=== PATIENT | male | born 1985 | race Caucasian/White ===

== ENCOUNTER 2016-09-11 14:40 | Emergency (ER) | payer MEDICAID ==
[~2016-09-11] VITALS: Ht 170.2 cm; Wt 68.0 kg
[2016-09-11 14:41] VITALS: BP 125/79; PULSE 68; RESP 20; TEMP 98.4; O2SAT 98
[2016-09-11 17:28] VITALS: O2SAT 100
[2016-09-11] MEDS ORDERED: PANTOPRAZOLE SODIUM 40 MG VIAL IV PUSH ONE (17:30)
[2016-09-11] MEDS ORDERED: KETOROLAC TROMETHAMINE 30 MG/ML (IVP) VIAL IV PUSH ONE (17:30)
[2016-09-11] MEDS ORDERED: SODIUM CHLORIDE 0.9% FLUSH 5 ML FLUSH IVF PRN (17:30)
--- NOTE | 2016-09-11 17:30 | PD ---
HPI Chief Complaint: Abdominal Pain Time Seen by Provider: 17:06 Travel History International Travel<30 days: No Contact w/Intl Traveler<30days: No Traveled to known affect area: No History of Present Illness HPI 31yo M with no significant PMH presents to the ED with c/o epigastric abdominal pain for 3 days. Pain is constant, nonradiating. Denies any n/v, fever, dysuria, hematuria, testicular pain, penile discharge. Took peptol bismol and cimetidine with no relief. Denies any surgical history. PFSH Past Medical History Medical History: Denies Significant Hx Diminished Hearing: No Tetanus Vaccination: Unknown Influenza Vaccination: No Past Surgical History Surgical History: No Previous Surgery Social History Alcohol Use: No Tobacco Use: No Substance Use: No Allergies-Medications (Allergen,Severity, Reaction): Coded Allergies: No Known Allergies (Unverified , 09/11/16) Reported Meds & Prescriptions Reported Meds & Active Scripts Active No Active Prescriptions or Reported Medications Review of Systems Except as stated in HPI: all other systems reviewed are Neg Physical Exam Narrative GENERAL: 31yo M not in distress. SKIN: Warm and dry. HEAD: Atraumatic. Normocephalic. EYES: Pupils equal and round. No scleral icterus. No injection or drainage. ENT: No nasal bleeding or discharge. Mucous membranes pink and moist. NECK: Trachea midline. No JVD. CARDIOVASCULAR: Regular rate and rhythm. No murmur appreciated. RESPIRATORY: No accessory muscle use. Clear to auscultation. Breath sounds equal bilaterally. GASTROINTESTINAL: Abdomen soft, +LLQ tenderness. No rebound tenderness or guarding. : No ttp bilateral testicles. No penile discharge. MUSCULOSKELETAL: No obvious deformities. No clubbing. No cyanosis. No edema. NEUROLOGICAL: Awake and alert. No obvious cranial nerve deficits. Motor grossly within normal limits. Normal speech. PSYCHIATRIC: Appropriate mood and affect; insight and judgment normal. Data Data Last Documented VS Vital Signs Date Time Temp Pulse Resp B/P Pulse Ox O2 Delivery O2 Flow Rate FiO2 09/11/16 17:28 100 Room Air 09/11/16 14:41 98.4 68 20 125/79 Orders Complete Blood Count With Diff (09/11/16 17:23) Comprehensive Metabolic Panel (09/11/16 17:23) Lipase (09/11/16 17:23) Urinalysis - C+S If Indicated (09/11/16 17:23) Iv Access Insert/Monitor (09/11/16 17:23) Ecg Monitoring (09/11/16 17:23) Oximetry (09/11/16 17:23) Sodium Chloride 0.9% Flush (Ns Flush) (09/11/16 17:30) Pantoprazole Inj (Protonix Inj) (09/11/16 17:30) Ketorolac Inj (Toradol Inj) (09/11/16 17:30) Urine Culture (09/11/16 17:36) Labs Laboratory Tests Test 09/11/16 17:36 White Blood Count 9.6 TH/MM3 Red Blood Count 5.65 MIL/MM3 Hemoglobin 16.2 GM/DL Hematocrit 48.1 % Mean Corpuscular Volume 85.2 FL Mean Corpuscular Hemoglobin 28.7 PG Mean Corpuscular Hemoglobin 33.7 % Concent Red Cell Distribution Width 12.5 % Platelet Count 233 TH/MM3 Mean Platelet Volume 8.0 FL Neutrophils (%) (Auto) 64.9 % Lymphocytes (%) (Auto) 25.4 % Monocytes (%) (Auto) 5.7 % Eosinophils (%) (Auto) 3.8 % Basophils (%) (Auto) 0.2 % Neutrophils # (Auto) 6.2 TH/MM3 Lymphocytes # (Auto) 2.4 TH/MM3 Monocytes # (Auto) 0.5 TH/MM3 Eosinophils # (Auto) 0.4 TH/MM3 Basophils # (Auto) 0.0 TH/MM3 CBC Comment DIFF FINAL Differential Comment Urine Color YELLOW Urine Turbidity CLOUDY Urine pH 7.5 Urine Specific [place] 1.018 Urine Protein NEG mg/dL Urine Glucose (UA) NEG mg/dL Urine Ketones 10 mg/dL Urine Occult Blood NEG Urine Nitrite NEG Urine Bilirubin NEG Urine Urobilinogen LESS THAN 2.0 MG/DL Urine Leukocyte Esterase TRACE Urine RBC 1 /hpf Urine WBC 10 /hpf Urine Amorphous Sediment MOD Urine Bacteria OCC /hpf Urine Mucus FEW /lpf Microscopic Urinalysis Comment CULTURE INDICATED Sodium Level 141 MEQ/L Potassium Level 3.6 MEQ/L Chloride Level 102 MEQ/L Carbon Dioxide Level 28.0 MEQ/L Anion Gap 11 MEQ/L Blood Urea Nitrogen 7 MG/DL Creatinine 0.96 MG/DL Estimat Glomerular Filtration 93 ML/MIN Rate Random Glucose 80 MG/DL Calcium Level 9.3 MG/DL Total Bilirubin 0.6 MG/DL Aspartate Amino Transf 18 U/L (AST/SGOT) Alanine Aminotransferase 43 U/L (ALT/SGPT) Alkaline Phosphatase 75 U/L Total Protein 7.5 GM/DL Albumin 4.2 GM/DL Lipase 81 U/L MDM Medical Decision Making Medical Screen Exam Complete: Yes Emergency Medical Condition: Yes Interpretation(s) Laboratory Tests Test 09/11/16 17:36 White Blood Count 9.6 TH/MM3 (4.0-11.0) Red Blood Count 5.65 MIL/MM3 (4.50-5.90) Hemoglobin 16.2 GM/DL (13.0-17.0) Hematocrit 48.1 % (39.0-51.0) Mean Corpuscular Volume 85.2 FL (80.0-100.0) Mean Corpuscular Hemoglobin 28.7 PG (27.0-34.0) Mean Corpuscular Hemoglobin 33.7 % Concent (32.0-36.0) Red Cell Distribution Width 12.5 % (11.6-17.2) Platelet Count 233 TH/MM3 (150-450) Mean Platelet Volume 8.0 FL (7.0-11.0) Neutrophils (%) (Auto) 64.9 % (16.0-70.0) Lymphocytes (%) (Auto) 25.4 % (9.0-44.0) Monocytes (%) (Auto) 5.7 % (0.0-8.0) Eosinophils (%) (Auto) 3.8 % (0.0-4.0) Basophils (%) (Auto) 0.2 % (0.0-2.0) Neutrophils # (Auto) 6.2 TH/MM3 (1.8-7.7) Lymphocytes # (Auto) 2.4 TH/MM3 (1.0-4.8) Monocytes # (Auto) 0.5 TH/MM3 (0-0.9) Eosinophils # (Auto) 0.4 TH/MM3 (0-0.4) Basophils # (Auto) 0.0 TH/MM3 (0-0.2) CBC Comment DIFF FINAL Differential Comment Urine Color YELLOW (YELLW/STRAW) Urine Turbidity CLOUDY (CLEAR) Urine pH 7.5 (5.0-8.5) Urine Specific [place] 1.018 (1.002-1.035) Urine Protein NEG mg/dL (NEG-TRACE) Urine Glucose (UA) NEG mg/dL (NEG) Urine Ketones 10 mg/dL (NEG) Urine Occult Blood NEG (NEG) Urine Nitrite NEG (NEG) Urine Bilirubin NEG (NEG) Urine Urobilinogen LESS THAN 2.0 MG/DL (LESS THAN 2.0) Urine Leukocyte Esterase TRACE (NEG) Urine RBC 1 /hpf (0-3) Urine WBC 10 /hpf (0-5) Urine Amorphous Sediment MOD Urine Bacteria OCC /hpf (NONE) Urine Mucus FEW /lpf (OCC) Microscopic Urinalysis Comment CULTURE INDICATED Sodium Level 141 MEQ/L (136-145) Potassium Level 3.6 MEQ/L (3.5-5.1) Chloride Level 102 MEQ/L (98-107) Carbon Dioxide Level 28.0 MEQ/L (21.0-32.0) Anion Gap 11 MEQ/L (5-15) Blood Urea Nitrogen 7 MG/DL (7-18) Creatinine 0.96 MG/DL (0.60-1.30) Estimat Glomerular Filtration 93 ML/MIN (>89) Rate Random Glucose 80 MG/DL (74-106) Calcium Level 9.3 MG/DL (8.5-10.1) Total Bilirubin 0.6 MG/DL (0.2-1.0) Aspartate Amino Transf 18 U/L (15-37) (AST/SGOT) Alanine Aminotransferase 43 U/L (12-78) (ALT/SGPT) Alkaline Phosphatase 75 U/L (45-117) Total Protein 7.5 GM/DL (6.4-8.2) Albumin 4.2 GM/DL (3.4-5.0) Lipase 81 U/L (73-393) Differential Diagnosis Gastritis vs. colitis vs. pancreatitis Narrative Course 31 well appearing male with no significant PMH here with c/p epigastric abdominal pain for 3 days. However, on exam, he states pain is more on left lower abdomen and no pain on epigastric region when I press. Labs reviewed, no leukocytosis. CMP unremarkable. Lipase normal. UA showed occasional bacteria, WBC 10. Will prescribe cipro. Pt given toradol and pantoprazole and abdominal pain has resolved. Pt is eating and wants to go home. Pt reevaluated at bedside. Abd: soft, NT/ND. No rebound tenderness or guarding. Diagnosis Primary Impression: UTI (urinary tract infection) Qualified Code: N39.0 - Urinary tract infection without hematuria, site unspecified Patient Instructions: General Instructions Departure Forms: Tests/Procedures Additional Instructions: Please follow up with your PMD in 3-7 days. Return to the ED if symptoms worsen. Med/Other Pt SpecificInfo: Prescription(s) given Scripts Omeprazole 40 Mg Cap40 Mg PO DAILY #10 CAP Ref 0 Prov:Nova Issa DO 09/11/16 Ciprofloxacin (Cipro)500 Mg Bhs644 Mg PO BID 7 Days Ref 0 Prov:Nova Issa DO 09/11/16 Disposition: 01 DISCHARGE HOME Condition: Stable Nova Issa DO Sep 11, 2016 17:30
[2016-09-11 17:54] LABS: AUTOMATED NEUTROPHIL # 6.2 TH/MM3 (1.8-7.7); BASOPHIL % 0.2 % (0.0-2.0); EOSINOPHIL # 0.4 TH/MM3 (0-0.4); EOSINOPHIL % 3.8 % (0.0-4.0); HEMATOCRIT 48.1 % (39.0-51.0); HEMO FLAGS DIFF FINAL; LYMPH % 25.4 % (9.0-44.0); LYMPHOCYTE # 2.4 TH/MM3 (1.0-4.8); MEAN CELL VOLUME 85.2 FL (80.0-100.0); MEAN CORPUSCULAR HEMOGLOBIN 28.7 PG (27.0-34.0); MEAN CORPUSCULAR HGB CONC 33.7 % (32.0-36.0); MONO % 5.7 % (0.0-8.0); NEUT % 64.9 % (16.0-70.0); PLATELET COUNT 233 TH/MM3 (150-450); RED BLOOD COUNT 5.65 MIL/MM3 (4.50-5.90); RED CELL DISTRIBUTION WIDTH 12.5 % (11.6-17.2); WHITE BLOOD COUNT 9.6 TH/MM3 (4.0-11.0)
[2016-09-11 18:05] LABS: BACTERIA, URINE OCC /hpf; BLOOD, URINE NEG (NEG); GLUCOSE,URINE NEG (NEG); KETONE, URINE 10 mg/dL (NEG); MUCUS URINE FEW /lpf (OCC); NITRITE,URINE NEG (NEG); PH, URINE 7.5 (5.0-8.5); URINE COLOR YELLOW (YELLW/STRAW)
[2016-09-11 18:08] LABS: COMMENT (UR) CULTURE INDICATED; CULTURE IF INDICATED CULTURE INDICATED
[2016-09-11 18:13] LABS: ALT (GPT) 43 U/L (12-78); ANION GAP 11 MEQ/L (5-15); AST (GOT) 18 U/L (15-37); BLOOD UREA NITROGEN 7 MG/DL (7-18); CHLORIDE 102 MEQ/L (98-107); GLOMERULAR FILTRATION RATE 93 ML/MIN (>89); POTASSIUM 3.6 MEQ/L (3.5-5.1); SODIUM (NA) 141 MEQ/L (136-145)
[2016-09-11 18:15] LABS: ALKALINE PHOSPHATASE 75 U/L (45-117); TOTAL BILIRUBIN ADULT 0.6 MG/DL (0.2-1.0)
[2016-09-11] MEDS ORDERED: CIPR-9 PO (19:13)
[2016-09-11] MEDS ORDERED: OMEP40CA2 PO (19:13)
== END 2016-09-11 20:19 | disposition home or self-care (01) ==
LOC: NEPE 14:40
DX: N39.0 Urinary tract infection, site not specified (principal)
CPT/HCPCS: 80053; 81001; 83690; 85025; 87086; 96374; 96375; 99284; C9113; J1885